=== PATIENT | male | born 1990 | race Caucasian/White ===

== ENCOUNTER 2019-09-15 14:07 | Emergency (ER) | payer BC ==
[~2019-09-15] VITALS: Ht 167.6 cm; Wt 71.7 kg
[2019-09-15 14:34] VITALS: BP 136/88; Ht 167.6 cm; Wt 71.7 kg
== END 2019-09-15 17:45 | disposition left against medical advice (07) ==
LOC: ED 14:07
DX: Z53.21 Procedure and treatment not carried out due to patient leaving prior to being seen by health care provider (principal)